=== PATIENT | female | born 1950 | race Caucasian/White ===

== ENCOUNTER 2019-09-25 06:11 | Emergency (ER) | payer MEDICARE, OTHER ==
[2019-09-25] MEDS ORDERED: Alum Hydrox/Mag Hydrox/Simeth 30 ML, Lidocaine 2% 15 ML PO STA ×2 (06:39)
--- NOTE | 2019-09-25 06:43 | EDM.PDOC ---
<Errol Villavicencio Bogdan - Last Filed: 09/25/19 07:25> ED HPI GENERAL MEDICAL PROBLEM - General Chief Complaint: Chest Pain Stated Complaint: CHEST PAIN/BACK PAIN/SOB Time Seen by Provider: 09/25/19 06:21 Source of Information: Reports: Patient History Limitations: Reports: No Limitations - History of Present Illness INITIAL COMMENTS - FREE TEXT/NARRATIVE: Mrs. Kwong is a pleasant 69-year-old woman who now presents the ED stating that she woke up at 04:00 this morning with retrosternal chest pain that radiates straight through her back and up her anterior throat to the back of her tongue. She describes the pain as constant and pressure-like. It is a pain, not a discomfort. It is associated with nausea, diaphoresis, and dyspnea. No sense of impending doom. The patient also reports a headache, although she states that she gets near-daily headaches. She took 1 tablet of lisinopril, 2 full-strength aspirin, and an albuterol MDI prior to coming to the ED. No prior similar symptoms. Here in the ED, the patient's initial BP is found to be mildly elevated 156/80, otherwise, she is hemodynamically stable, afebrile, saturating 96% on room air. The patient reports that she has had about 1 week of sweating episodes, where she will suddenly sweat for no apparent reason, even if she is feeling cold. Otherwise, the patient denies having a recent fever, chills, sore throat, ear pain, nasal or sinus congestion, cough, dyspnea, chest pain, palpitations, nausea, vomiting, constipation, diarrhea, abdominal pain, urinary symptoms, recent weight gain or weight loss, recent bloody bowel movements or black bowel movements, recent joint aches, headaches, or rashes. The patient's PCP is Galilea Calle NP. The patient lives in [place], but states that she spends a lot of time in this area, with family. - Related Data Allergies Allergy/AdvReac Type Severity Reaction Status Date / Time cephalexin [From Keflex] Allergy Difficulty Verified 12/15/18 13:23 Breathing codeine Allergy Hyperactivi Verified 12/15/18 13:24 ty Penicillins Allergy Other Verified 12/15/18 13:22 Home Meds: Home Meds lisinopriL [Lisinopril] 20 mg PO DAILY 09/25/19 [History] Past Medical History HEENT History: Reports: Allergic Rhinitis Cardiovascular History: Reports: Hypertension Respiratory History: Reports: COPD (suspected, not tested) Genitourinary History: Reports: Urinary Incontinence (stress incontinence) - Past Surgical History HEENT Surgical History: Reports: Cataract Surgery (biilateral), Oral Surgery (dental extractions), Tonsillectomy GI Surgical History: Reports: Appendectomy, Cholecystectomy (2006 or 2008) Female Surgical History: Reports: Tubal Ligation Social & Family History - Tobacco Use Smoking Status *Q: Current Every Day Smoker Years of Tobacco use: 61 Packs/Tins Daily: 2 Packs/Tins Daily Comment: Down from 2.5 ppd - Alcohol Use Alcohol Use History: No - Recreational Drug Use Recreational Drug Use: No - Living Situation & Occupation Living situation: Reports: , with Family Occupation: Retired ED ROS GENERAL - Review of Systems Review Of Systems: Comprehensive ROS is negative, except as noted in HPI. ED EXAM, GENERAL - Physical Exam Exam: See Below Exam Limited By: No Limitations General Appearance: Alert, WD/WN, Mild Distress (appears uncomfortable) Eye Exam: Bilateral Eye: EOMI, Normal Inspection Ears: Normal External Exam, Hearing Grossly Normal Nose: Normal Inspection Throat/Mouth: Normal Inspection, Normal Lips, Normal Voice, No Airway Compromise Head: Atraumatic, Normocephalic Neck: Normal Inspection, Full Range of Motion Respiratory/Chest: No Respiratory Distress, Lungs Clear, Normal Breath Sounds, No Accessory Muscle Use, Chest Non-Tender Cardiovascular: Normal Peripheral Pulses, Regular Rate, Rhythm, No Edema, No Gallop, No JVD, No Murmur, No Rub Peripheral Pulses: 3+: Radial (L), Radial (R) GI/Abdominal: Normal Bowel Sounds, Soft, Non-Tender (including the epigastrium), No Organomegaly, No Distention, No Abnormal Bruit, No Mass (Female) Exam: Deferred Rectal (Female) Exam: Deferred Back Exam: Normal Inspection, Full Range of Motion. No: CVA Tenderness (L), CVA Tenderness (R) Extremities: Normal Inspection, Normal Range of Motion, No Pedal Edema, Normal Capillary Refill Neurological: Alert, Oriented, Normal Cognition, No Motor/Sensory Deficits Psychiatric: Normal Affect Skin Exam: Warm, Dry, Intact, Normal Color, No Rash EKG INTERPRETATION EKG Date: 09/25/19 Time: 06:28 Rhythm: NSR Rate (Beats/Min): 84 [place]: RAD-Right [place] Deviation P-Wave: Present QRS: Normal (slightly late transition) ST-T: Normal QT: Normal Comparison: NA - No Prior EKG Course - Re-Assessments/Exams Free Text/Narrative Re-Assessment/Exam: 09/25/19 06:41 As above, the patient has had about 1 week of paroxysmal diaphoresis, then woke around 4:00 this morning with retrosternal chest pain that radiated straight through to her back, up into her anterior neck, and to the back of her tongue. Her symptoms are made worse when she takes a deep breath, otherwise, she has not identified any modifiers. Her pain is associated with shortness of breath, nausea, and diaphoresis. Her ECG obtained at triage shows no ischemic changes. I suspect acid reflux, and have therefore ordered a GI cocktail, along with a work-up that includes blood work and a chest x-ray. 09/25/19 07:16 2-view chest x-ray is read by Dr. Puentes as: 1. Questionable pulmonary nodule within left upper chest. Noncontrast chest CT could be considered to further evaluate. 2. Emphysematous change. 3. Nothing acute is otherwise seen. 09/25/19 07:21 The patient states that the GI cocktail helped her chest pain "a little bit". Case discussed with Dr. Broussard, and care of the patient turned over to him at this time, for change of shift. 09/25/19 07:24 I have ordered a CT of the chest with IV contrast, to rule out an aortic dissection, along with IV fluid. Departure - Departure Disposition: Home, Self-Care 01 Clinical Impression: Atypical chest pain, Pulmonary nodule, left - Discharge Information *PRESCRIPTION DRUG MONITORING PROGRAM REVIEWED*: Not Applicable *COPY OF PRESCRIPTION DRUG MONITORING REPORT IN PATIENT BOBBY: Not Applicable Referrals: Galilea Calle NP [Primary Care Provider] - 1 Week Forms: ED Department Discharge Additional Instructions: Take your medication as prescribed. Follow up with Galilea to have the nodule in your left chest worked up. Please return if you are worse. Sepsis Event Note (ED) - Evaluation Sepsis Screening Result: No Definite Risk <Marcus Broussard - Last Filed: 09/25/19 09:49> Course - Vital Signs Last Recorded V/S: Last Vital Signs Temp 99.0 F 09/25/19 06:21 Pulse 80 09/25/19 06:21 Resp 16 09/25/19 06:21 BP 156/80 H 09/25/19 06:21 Pulse Ox 96 09/25/19 06:21 - Orders/Labs/Meds Orders: Active Orders 24 hr Category Date Time Status EKG Documentation Completion [RC] STAT Care 09/25/19 06:40 Active Sodium Chloride 0.9% [Normal Saline] 1,000 ml Med 09/25/19 07:30 Active IV ASDIRECTED Sodium Chloride 0.9% [Saline Flush] Med 09/25/19 07:34 Active 10 ml FLUSH ONETIME PRN Medication Orders Sodium Chloride (Normal Saline) 1,000 mls @ 150 mls/hr IV ASDIRECTED ROSEY Last Admin: 09/25/19 07:38 Dose: 150 mls/hr Documented by: TJ Sodium Chloride (Saline Flush) 10 ml FLUSH ONETIME PRN PRN Reason: Keep Vein Open Last Admin: 09/25/19 07:56 Dose: 10 ml Documented by: SADAF Labs: Laboratory Tests 09/25/19 09/25/19 09/25/19 Range/Units 06:30 06:30 06:30 WBC 15.71 H (3.98-10.04) K/mm3 RBC 5.16 (3.98-5.22) M/mm3 Hgb 15.6 (11.2-15.7) gm/dl Hct 47.7 H (34.1-44.9) % MCV 92.4 (79.4-94.8) fl MCH 30.2 (25.6-32.2) pg MCHC 32.7 (32.2-35.5) g/dl RDW Std Deviation 44.3 (36.4-46.3) fL Plt Count 229 (182-369) K/mm3 MPV 10.6 (9.4-12.3) fl Neutrophils % (Manual) 81 H (40-60) % Band Neutrophils % 1 (0-10) % Lymphocytes % (Manual) 11 L (20-40) % Atypical Lymphs % 0 % Monocytes % (Manual) 5 (2-10) % Eosinophils % (Manual) 1 (0.7-5.8) % Basophils % (Manual) 1 (0.1-1.2) Toxic Granulation 2+ moderate Platelet Estimate Adequate Plt Morphology Comment Normal RBC Morph Comment Normal D-Dimer, Quantitative 0.50 (0.19-0.50) mg/L Sodium 139 (136-145) mEq/L Potassium 3.6 (3.5-5.1) mEq/L Chloride 103 (98-107) mEq/L Carbon Dioxide 27 (21-32) mEq/L Anion Gap 12.6 (5-15) BUN 9 (7-18) mg/dL Creatinine 1.0 (0.55-1.02) mg/dL Est Cr Clr Drug Dosing 40.81 mL/min Estimated GFR (MDRD) 55 (>60) mL/min BUN/Creatinine Ratio 9.0 L (14-18) Glucose 99 (83-115) mg/dL Calcium 8.7 (8.5-10.1) mg/dL Total Bilirubin 0.3 (0.2-1.0) mg/dL AST 17 (15-37) U/L ALT 16 (14-59) U/L Alkaline Phosphatase 112 (46-116) U/L Troponin I < 0.017 (0.00-0.056) ng/mL NT-Pro-B Natriuret Pep (0-125) pg/mL Total Protein 7.8 (6.4-8.2) g/dl Albumin 4.0 (3.4-5.0) g/dl Globulin 3.8 gm/dL Albumin/Globulin Ratio 1.1 (1-2) 09/25/19 09/25/19 Range/Units 06:30 09:00 WBC (3.98-10.04) K/mm3 RBC (3.98-5.22) M/mm3 Hgb (11.2-15.7) gm/dl Hct (34.1-44.9) % MCV (79.4-94.8) fl MCH (25.6-32.2) pg MCHC (32.2-35.5) g/dl RDW Std Deviation (36.4-46.3) fL Plt Count (182-369) K/mm3 MPV (9.4-12.3) fl Neutrophils % (Manual) (40-60) % Band Neutrophils % (0-10) % Lymphocytes % (Manual) (20-40) % Atypical Lymphs % % Monocytes % (Manual) (2-10) % Eosinophils % (Manual) (0.7-5.8) % Basophils % (Manual) (0.1-1.2) Toxic Granulation Platelet Estimate Plt Morphology Comment RBC Morph Comment D-Dimer, Quantitative (0.19-0.50) mg/L Sodium (136-145) mEq/L Potassium (3.5-5.1) mEq/L Chloride (98-107) mEq/L Carbon Dioxide (21-32) mEq/L Anion Gap (5-15) BUN (7-18) mg/dL Creatinine (0.55-1.02) mg/dL Est Cr Clr Drug Dosing mL/min Estimated GFR (MDRD) (>60) mL/min BUN/Creatinine Ratio (14-18) Glucose (83-115) mg/dL Calcium (8.5-10.1) mg/dL Total Bilirubin (0.2-1.0) mg/dL AST (15-37) U/L ALT (14-59) U/L Alkaline Phosphatase (46-116) U/L Troponin I < 0.017 (0.00-0.056) ng/mL NT-Pro-B Natriuret Pep 267 H (0-125) pg/mL Total Protein (6.4-8.2) g/dl Albumin (3.4-5.0) g/dl Globulin gm/dL Albumin/Globulin Ratio (1-2) Meds: Medications Generic Name Dose Route Start Last Admin Trade Name Freq PRN Reason Stop Dose Admin Sodium Chloride 1,000 mls @ 150 mls/hr 09/25/19 07:30 09/25/19 07:38 Normal Saline IV 150 mls/hr ASDIRECTED ROSEY Administration Sodium Chloride 10 ml 09/25/19 07:34 09/25/19 07:56 Saline Flush FLUSH 10 ml ONETIME PRN Administration Keep Vein Open Discontinued Medications Generic Name Dose Route Start Last Admin Trade Name Freq PRN Reason Stop Dose Admin Al Hydroxide/Mg Hydroxide 30 0 ml 09/25/19 06:39 09/25/19 06:45 ml/ Lidocaine HCl 15 ml PO 09/25/19 06:40 45 ml ONETIME STA Administration Famotidine 20 mg 09/25/19 08:43 09/25/19 08:57 Pepcid IVPUSH 09/25/19 08:44 20 mg ONETIME ONE Administration Iopamidol 100 ml 09/25/19 07:34 09/25/19 07:51 Isovue-300 (61%) IVPUSH 09/25/19 07:35 100 ml ONETIME ONE Administration - Re-Assessments/Exams Free Text/Narrative Re-Assessment/Exam: 09/25/19 09:[address] Villavicencio. Her WBC was elevated at 15.7. Her CMP looks good. Her troponin is negative. 09/25/19 09:09 Her BNP was slightly elevated at 267. Her chest CT shows nodule within the left upper chest with measurements of 1.2cm X 0.9cm. Neoplastic nodule is high within the differential and needs to be excluded. Emphysematous change. No thoracic dissection or aneurysm. 09/25/19 09:24 She still has a little pain. I ordered pepcid 20mg IV and I will do a repeat troponin. 09/25/19 09:47 The repeat troponin is negative. I will discharge her home to follow up with Galilea to work up the pulmonary nodule. Departure - Departure Time of Disposition: 09:50 Condition: Good Sepsis Event Note (ED) - Focused Exam Vital Signs: Vital Signs Temp Pulse Resp BP Pulse Ox 09/25/19 06:21 99.0 F 80 16 156/80 H 96
--- NOTE | 2019-09-25 07:15 | CR ---
Chest: 2 views of the chest were obtained. Comparison: No previous chest x-ray is available. Nodular type density is noted within the left upper chest measuring 1.2 cm. Difficult to exclude pulmonary nodule. Lungs show no acute parenchymal change. Lungs appear somewhat hyperinflated suggesting emphysematous change. Degenerative change is scattered within the spine. Previous cholecystectomy is noted. Impression: 1. Questionable pulmonary nodule within left upper chest. Noncontrast chest CT could be considered to further evaluate. 2. Emphysematous change. 3. Nothing acute is otherwise seen. Diagnostic code #9 This report was dictated in MDT
[2019-09-25] MEDS ORDERED: Sodium Chloride 0.9% 1,000 ML IV SCH (07:30)
[2019-09-25] MEDS ORDERED: Sodium Chloride 0.9% 10 ML Syringe FLUSH PRN (07:34)
[2019-09-25] MEDS ORDERED: Iopamidol 612 MG/ML 100 ML Bottle IVPUSH ONE (07:34)
--- NOTE | 2019-09-25 08:16 | CT ---
CT chest Technique: Multiple axial sections through the chest were obtained. Intravenous contrast was utilized. Comparison: Prior chest x-ray of 09/25/19. Findings: Cyst is partially visualized within the right kidney. Small hiatal hernia is noted. No pericardial thickening is seen. Mild coronary artery calcification is seen. Aorta shows atherosclerotic calcification with no aneurysm or dissection. Mediastinum and hilar region show no adenopathy. No axillary adenopathy is seen. Emphysematous changes are noted within both lungs. Nodule is noted within the left upper lung correlating to the plain film finding. This measures about 1.2 cm x 0.9 cm. This does not appear calcified and neoplastic nodule is not excluded. Lungs otherwise are clear. No pleural effusions are seen. No acute parenchymal change is seen within the lungs. Bone window settings were reviewed which shows scattered degenerative endplate spurring within the spine. No acute osseous finding is appreciated. Impression: 1. Nodule within the left upper chest with measurements as noted above. Neoplastic nodule is high within the differential and needs to be excluded. 2. Emphysematous change. 3. No thoracic aortic dissection or aneurysm. Diagnostic code #9 This report was dictated in MDT
[2019-09-25] MEDS ORDERED: Famotidine 20 MG/2 ML SDV IVPUSH ONE (08:43)
== END 2019-09-25 10:05 | disposition home or self-care (01) ==
LOC: JD.ED 06:11
DX: R91.1 Solitary pulmonary nodule (principal); I10 Essential (primary) hypertension; F17.210 Nicotine dependence, cigarettes, uncomplicated; Z88.6 Allergy status to analgesic agent; Z88.0 Allergy status to penicillin; Z88.1 Allergy status to other antibiotic agents; Z90.89 Acquired absence of other organs; Z90.49 Acquired absence of other specified parts of digestive tract; Z98.51 Tubal ligation status; Z79.899 Other long term (current) drug therapy
CPT/HCPCS: 36415; 71046; 71260; 80053; 83880; 84484; 85007; 85027; 85379; 93005; 96374; 99285; A9270; J3490; J7030; Q9967; 93010; 99284

== ENCOUNTER 2022-01-13 10:02 | Day surgery (SDC) | payer MEDICARE, OTHER ==
[~2022-01-13 10:02] MED LIST: Lactated Ringers 1,000 ML IV SCH; Lidocaine 1%/Sod Bicarbonate in NS 8.4% 1 ML Syringe IDERM PRN; Sodium Chloride 0.9% 10 ML Syringe FLUSH PRN; Sodium Chloride 0.9% 10 ML Syringe FLUSH SCH
[2022-01-13] MEDS ORDERED: Propofol 200 MG/20 ML SDV ONE (10:41)
[2022-01-13] MEDS ORDERED: fentaNYL 100 MCG/2 ML SDV ONE (10:41)
== END 2022-01-13 12:35 | disposition home or self-care (01) ==
LOC: JD.SDS 10:02
PROVIDERS: ATTEND Surgery
DX: K29.50 Unspecified chronic gastritis without bleeding (principal); K31.A0 Gastric intestinal metaplasia, unspecified; K31.7 Polyp of stomach and duodenum; F17.210 Nicotine dependence, cigarettes, uncomplicated; G47.33 Obstructive sleep apnea (adult) (pediatric); J43.9 Emphysema, unspecified; I10 Essential (primary) hypertension; I34.0 Nonrheumatic mitral (valve) insufficiency; Z88.0 Allergy status to penicillin; Z88.1 Allergy status to other antibiotic agents; Z79.899 Other long term (current) drug therapy; Z98.890 Other specified postprocedural states; Z90.49 Acquired absence of other specified parts of digestive tract; Z79.82 Long term (current) use of aspirin
CPT/HCPCS: 43239; J2704; J3010; J7120; 88305; 88342

== ENCOUNTER → 2023-02-16 | Day surgery (SDC) | payer MEDICARE, OTHER ==
[~2023-02-16] MED LIST changes: +Albuterol/Ipratropium 3.0-0.5 MG/3 ML Neb Soln NEB SCH; -Lidocaine 1%/Sod Bicarbonate in NS 8.4% 1 ML Syringe IDERM PRN; +Propofol 200 MG/20 ML SDV ONE; +fentaNYL 100 MCG/2 ML SDV ONE
== END ==
LOC: JD.SDS 07:04
PROVIDERS: ATTEND Surgery
DX: Z53.8 Procedure and treatment not carried out for other reasons (principal)
CPT/HCPCS: 96360; J7120; J2704; J3010; J7620-GY

== ENCOUNTER 2023-02-21 10:02 | Emergency (ER) | payer MEDICARE, OTHER ==
[2023-02-21 10:47] LABS: BASOPHILS PERCENT AUTO 0.3 % (0.0-1.0); EOSINOPHILS ABSOLUTE AUTO 0.1 K/mm3 (0.0-0.4); EOSINOPHILS PERCENT AUTO 1.6 % (0.0-6.0); HEMATOCRIT 46.1 % (37.0-47.0); HEMOGLOBIN 14.7 gm/dl (12.0-16.0); IMMATURE GRAN ABSOLUTE AUTO 0.01 K/mm3 (0.00-0.05); IMMATURE GRAN PERCENT AUTO 0.1 % (0.0-0.4); LYMPHOCYTES ABSOLUTE AUTO 1.5 K/mm3 (1.0-4.8); LYMPHOCYTES PERCENT AUTO 21.4 % (24.0-44.0); MEAN CORPUSCULAR HEMOGLOBIN 30.9 pg (28.0-32.0); MEAN CORPUSCULAR HGB CONC 31.9 g/dl (32.0-36.0); MEAN CORPUSCULAR VOLUME 97.1 fl (83.0-99.0); MEAN PLATELET VOLUME 9.9 fl (9.4-12.3); MONOCYTES ABSOLUTE AUTO 0.6 K/mm3 (0.0-0.8); MONOCYTES PERCENT AUTO 8.2 % (0.0-8.0); NEUTROPHILS ABSOLUTE AUTO 4.8 K/mm3 (1.8-7.7); NEUTROPHILS PERCENT AUTO 68.4 % (41.0-71.0); PLATELET COUNT,PLT 199 K/mm3 (150-400); RED BLOOD CELL COUNT 4.75 M/mm3 (4.10-5.30); WHITE BLOOD CELL COUNT,WBC 6.95 K/mm3 (3.9-11.3)
[2023-02-21 11:09] LABS: A/G RATIO 0.9 (1-2); ALBUMIN 2.9 g/dl (3.4-5.0); ANION GAP 9.2 (5-15); BILIRUBIN TOTAL 0.4 mg/dL (0.2-1.0); BUN/CREATININE RATIO 8.6 (14-18); CALCIUM 8.7 mg/dL (8.5-10.1); CREATININE 0.7 mg/dL (0.55-1.02); EST CRCL DRUG DOSING (CG) 52.51 mL/min; MAGNESIUM 1.8 mg/dL (1.8-2.4); POTASSIUM,K 3.2 mEq/L (3.5-5.1); PROTEIN TOTAL,TP 6.3 g/dl (6.4-8.2)
== END 2023-02-21 15:30 | disposition home or self-care (01) ==
LOC: JD.ED 10:02
DX: R09.02 Hypoxemia (principal); J44.9 Chronic obstructive pulmonary disease, unspecified; Z99.81 Dependence on supplemental oxygen; Z79.82 Long term (current) use of aspirin; Z90.49 Acquired absence of other specified parts of digestive tract; Z88.0 Allergy status to penicillin; Z88.1 Allergy status to other antibiotic agents
CPT/HCPCS: 36415; 71046; 71046-26; 80053; 83735; 84484; 85025; 93005; 93010; 99283; 99285

== ENCOUNTER 2023-04-26 21:51 | Inpatient (IN) | payer MEDICARE, OTHER ==
[2023-04-26 22:31] LABS: BASOPHILS PERCENT AUTO 0.1 % (0.0-1.0); EOSINOPHILS ABSOLUTE AUTO 0.1 K/mm3 (0.0-0.4); EOSINOPHILS PERCENT AUTO 0.3 % (0.0-6.0); HEMATOCRIT 48.2 % (37.0-47.0); IMMATURE GRAN ABSOLUTE AUTO 0.21 K/mm3 (0.00-0.05); IMMATURE GRAN PERCENT AUTO 0.8 % (0.0-0.4); LYMPHOCYTES ABSOLUTE AUTO 1.6 K/mm3 (1.0-4.8); LYMPHOCYTES PERCENT AUTO 5.8 % (24.0-44.0); MEAN CORPUSCULAR HEMOGLOBIN 31.1 pg (28.0-32.0); MEAN CORPUSCULAR HGB CONC 33.2 g/dl (32.0-36.0); MEAN CORPUSCULAR VOLUME 93.6 fl (83.0-99.0); MEAN PLATELET VOLUME 9.4 fl (9.4-12.3); MONOCYTES ABSOLUTE AUTO 1.6 K/mm3 (0.0-0.8); NEUTROPHILS ABSOLUTE AUTO 23.9 K/mm3 (1.8-7.7); PLATELET COUNT,PLT 221 K/mm3 (150-400); RED BLOOD CELL COUNT 5.15 M/mm3 (4.10-5.30); WHITE BLOOD CELL COUNT,WBC 27.49 K/mm3 (3.9-11.3)
[2023-04-26 22:32] LABS: APPEARANCE,URINE CLEAR (Clear); BILIRUBIN,URINE NEGATIVE (Negative); COLOR,URINE YELLOW (Yellow); GLUCOSE,URINE NEGATIVE (Negative); KETONES,URINE NEGATIVE (Negative); LEUKOCYTE ESTERASE,URINE NEGATIVE (Negative); NITRITE,URINE NEGATIVE (Negative); OCCULT BLOOD,URINE NEGATIVE (Negative); PH,URINE 7.5 (5.0-8.0); PROTEIN,URINE NEGATIVE (Negative)
[2023-04-26] MEDS: Sodium Chloride 0.9% 10 ML Syringe FLUSH PRN (22:37)
[2023-04-26 22:38] LABS: ALBUMIN 3.5 g/dl (3.4-5.0); BILIRUBIN TOTAL 0.5 mg/dL (0.2-1.0); BUN/CREATININE RATIO 16.7 (14-18); CALCIUM 8.4 mg/dL (8.5-10.1); CREATININE 0.6 mg/dL (0.55-1.02); EST CRCL DRUG DOSING (CG) 69.61 mL/min
[2023-04-26 22:46] LABS: BACTERIA,URINE FEW /hpf (FEW); MUCUS,URINE FEW /hpf (FEW); RBC,URINE 0-5 /hpf (0-5); SQUAMOUS EPITHELIAL CELLS,UR 0-5 /hpf (0-5); WBC,URINE 0-5 /hpf (0-5)
[2023-04-26 22:51] LABS: BARBITURATE SCREEN,URINE NEGATIVE (CUTOFF=200); BENZODIAZEPINES SCREEN,URINE NEGATIVE (CUTOFF=150); BUPRENORPHINE SCREEN,URINE NEGATIVE (CUTOFF=10); METHADONE SCREEN, URINE NEGATIVE (CUTOFF=200); METHAMPHETAMINES SCREEN, URINE NEGATIVE (CUTOFF=500); OXYCODONE SCREEN,URINE PRESUMPTIVE POSITIVE (CUT0FF=100); THC SCREEN,URINE 20 NG/ML PRESUMPTIVE POSITIVE (CUTOFF=50)
[2023-04-26 22:54] LABS: AMPHETAMINES SCREEN, URINE NEGATIVE (CUTOFF=500)
[2023-04-26] MEDS ORDERED: Sodium Chloride 0.9% 100 ML IV SCH (23:15)
[2023-04-26 23:57] LABS: SLIDE REVIEW ABNORMAL SMEAR
[2023-04-27] MEDS ORDERED: Naloxone 0.4 MG/ML SDV IVPUSH PRN ×2 (00:16→02:42)
[2023-04-27] MEDS: Morphine 2 MG/ML SYRINGE IVPUSH ONE ×2 (00:21→02:49)
[2023-04-27] MEDS: Doxycycline 100 MG in Sodium Chloride 0.9% 100 ML IV ONE (00:30)
[2023-04-27 01:19] LABS: CORONAVIRUS COVID-19 NAA NEGATIVE (NEGATIVE); INFLUENZA A NAA NEGATIVE (NEGATIVE); RESPIRATORY SYNCYTIAL VIR NAA NEGATIVE (NEGATIVE)
[2023-04-27] MEDS: Sodium Chloride 0.9% 1,000 ML IV SCH ×2 (02:47→04:00)
[2023-04-27] MEDS: Morphine 2 MG/ML SYRINGE IVPUSH PRN (02:47)
[2023-04-27] MEDS: Sulfamethoxazole/Trimethoprim 800-160 MG Tab PO SCH (02:54)
[2023-04-27 05:43] LABS: BASOPHILS ABSOLUTE AUTO 0.1 K/mm3 (0.0-0.2); BASOPHILS PERCENT AUTO 0.2 % (0.0-1.0); EOSINOPHILS ABSOLUTE AUTO 0.1 K/mm3 (0.0-0.4); EOSINOPHILS PERCENT AUTO 0.2 % (0.0-6.0); HEMATOCRIT 44.3 % (37.0-47.0); HEMOGLOBIN 14.7 gm/dl (12.0-16.0); IMMATURE GRAN ABSOLUTE AUTO 0.17 K/mm3 (0.00-0.05); IMMATURE GRAN PERCENT AUTO 0.6 % (0.0-0.4); LYMPHOCYTES ABSOLUTE AUTO 1.7 K/mm3 (1.0-4.8); LYMPHOCYTES PERCENT AUTO 6.1 % (24.0-44.0); MEAN CORPUSCULAR HEMOGLOBIN 30.6 pg (28.0-32.0); MEAN CORPUSCULAR HGB CONC 33.2 g/dl (32.0-36.0); MEAN CORPUSCULAR VOLUME 92.3 fl (83.0-99.0); MEAN PLATELET VOLUME 9.1 fl (9.4-12.3); MONOCYTES ABSOLUTE AUTO 1.7 K/mm3 (0.0-0.8); MONOCYTES PERCENT AUTO 5.8 % (0.0-8.0); NEUTROPHILS ABSOLUTE AUTO 24.6 K/mm3 (1.8-7.7); NEUTROPHILS PERCENT AUTO 87.1 % (41.0-71.0); PLATELET COUNT,PLT 179 K/mm3 (150-400); WHITE BLOOD CELL COUNT,WBC 28.22 K/mm3 (3.9-11.3)
[2023-04-27 06:15] LABS: SLIDE REVIEW ABNORMAL SMEAR
[2023-04-27] MEDS: Levofloxacin/Dextrose 5%-Water 750 MG in Premix Bag 1 BAG IV SCH (06:47)
[2023-04-27] MEDS: Iopamidol 755 Mg/ML 100 ML Bottle IVPUSH ONE (07:45)
[2023-04-27] MEDS ORDERED: Docusate Sodium 100 MG Cap PO PRN (07:57)
[2023-04-27] MEDS ORDERED: oxyCODONE 5 MG Tab PO PRN (07:57)
[2023-04-27] MEDS ORDERED: Albuterol 0.083% 2.5 MG/3 ML Neb Soln NEB PRN (07:57)
[2023-04-27] MEDS ORDERED: Ondansetron 4 MG/2 ML SDV IV PRN (07:57)
[2023-04-27] MEDS ORDERED: Acetaminophen 325 MG Tab PO PRN (07:57)
[2023-04-27] MEDS ORDERED: Melatonin 3 MG Tab PO PRN (07:59)
[2023-04-27] MEDS: Fluticasone NASAL Spray 16 GM Bottle NASBOTH SCH (08:40)
[2023-04-27] MEDS: Aspirin 81 MG Tab.EC PO SCH (08:41)
[2023-04-27] MEDS: Enoxaparin 40 MG/0.4 ML Syringe SUBCUT SCH (08:41)
[2023-04-27] MEDS: Lisinopril 20 MG Tab PO SCH (08:41)
[2023-04-27] MEDS: Pantoprazole 40 MG Tab.CR PO SCH (08:41)
[2023-04-27] MEDS: Albuterol/Ipratropium 3.0-0.5 MG/3 ML Neb Soln NEB SCH (08:59)
[2023-04-27 09:24] LABS: BUN/CREATININE RATIO 13.3 (14-18); CALCIUM 8.3 mg/dL (8.5-10.1); CREATININE 0.6 mg/dL (0.55-1.02); EST CRCL DRUG DOSING (CG) 59.35 mL/min
[2023-04-27] MEDS: GLYCOPYRROLATE INH SCH (09:54)
[2023-04-27] MEDS: FORMOTEROL INH SCH (09:54)
[2023-04-27] MEDS: BUDESONIDE INH SCH (09:54)
[2023-04-27 17:02] LABS: ANION GAP 14.6 (5-15); POTASSIUM,K 4.6 mEq/L (3.5-5.1)
[2023-04-27] MEDS: Famotidine 20 MG Tab PO SCH (20:11)
[2023-04-27] MEDS: traZODone 50 MG Tab PO SCH (20:12)
[2023-04-28 05:02] LABS: BASOPHILS PERCENT AUTO 0.1 % (0.0-1.0); EOSINOPHILS ABSOLUTE AUTO 0.1 K/mm3 (0.0-0.4); EOSINOPHILS PERCENT AUTO 0.3 % (0.0-6.0); HEMATOCRIT 40.6 % (37.0-47.0); HEMOGLOBIN 13.7 gm/dl (12.0-16.0); IMMATURE GRAN ABSOLUTE AUTO 0.08 K/mm3 (0.00-0.05); IMMATURE GRAN PERCENT AUTO 0.4 % (0.0-0.4); LYMPHOCYTES ABSOLUTE AUTO 1.3 K/mm3 (1.0-4.8); LYMPHOCYTES PERCENT AUTO 7.3 % (24.0-44.0); MEAN CORPUSCULAR HEMOGLOBIN 30.1 pg (28.0-32.0); MEAN CORPUSCULAR HGB CONC 33.7 g/dl (32.0-36.0); MEAN CORPUSCULAR VOLUME 89.2 fl (83.0-99.0); MEAN PLATELET VOLUME 9.3 fl (9.4-12.3); MONOCYTES ABSOLUTE AUTO 0.9 K/mm3 (0.0-0.8); NEUTROPHILS PERCENT AUTO 86.9 % (41.0-71.0); PLATELET COUNT,PLT 143 K/mm3 (150-400); RED BLOOD CELL COUNT 4.55 M/mm3 (4.10-5.30); WHITE BLOOD CELL COUNT,WBC 18.38 K/mm3 (3.9-11.3)
[2023-04-28 05:26] LABS: ANION GAP 13.5 (5-15); BUN/CREATININE RATIO 21.7 (14-18); C-REACTIVE PROTEIN 11.84 mg/dL (<0.30); CALCIUM 8.5 mg/dL (8.5-10.1); CREATININE 0.6 mg/dL (0.55-1.02); EST CRCL DRUG DOSING (CG) 59.35 mL/min
[2023-04-28 05:30] LABS: POTASSIUM,K 4.5 mEq/L (3.5-5.1)
[2023-04-28] MEDS: Acetaminophen/Butalbital/Caffeine 325-50-40 MG Tab PO ONE (08:59)
== END 2023-04-28 10:58 | disposition home or self-care (01) | DRG 193 ==
LOC: JD.ED 21:51 → JD.MS 04-27 02:19
PROVIDERS: ADMIT Hospitalist; ATTEND Hospitalist
DX: J18.9 Pneumonia, unspecified organism (principal); J44.9 Chronic obstructive pulmonary disease, unspecified; J96.01 Acute respiratory failure with hypoxia; J44.0 Chronic obstructive pulmonary disease with (acute) lower respiratory infection; I10 Essential (primary) hypertension; M19.90 Unspecified osteoarthritis, unspecified site; G89.29 Other chronic pain; M54.2 Cervicalgia; R63.6 Underweight; Z68.20 Body mass index [BMI] 20.0-20.9, adult; J43.9 Emphysema, unspecified; F17.210 Nicotine dependence, cigarettes, uncomplicated; Z88.1 Allergy status to other antibiotic agents; Z88.0 Allergy status to penicillin; Z79.82 Long term (current) use of aspirin; Z86.010 Personal history of colon polyps; Z90.49 Acquired absence of other specified parts of digestive tract; Z98.51 Tubal ligation status; Z90.89 Acquired absence of other organs; Z98.49 Cataract extraction status, unspecified eye; Z85.118 Personal history of other malignant neoplasm of bronchus and lung; Z99.81 Dependence on supplemental oxygen; Z79.899 Other long term (current) drug therapy
CPT/HCPCS: 0241U; 36415; 70496; 70498; 71045; 71260; 80048; 80053; 80306; 80307; 81001; 83735; 85025; 86140; 93005; 94640; 94667; 94668; 94761; 96365; 96375; 97116; 97161; 99285; 93010; A9270-GY; C1758; J1650; J1956; J2270; J3490; J7030; J7620-GY

== ENCOUNTER 2024-05-24 15:39 | Inpatient (IN) | payer MEDICARE, OTHER ==
[2024-05-24 16:34] LABS: BASOPHILS PERCENT AUTO 0.3 % (0.0-1.0); EOSINOPHILS PERCENT AUTO 0.3 % (0.0-6.0); HEMATOCRIT 41.9 % (37.0-47.0); HEMOGLOBIN 13.8 gm/dl (12.0-16.0); IMMATURE GRAN ABSOLUTE AUTO 0.03 K/mm3 (0.00-0.05); IMMATURE GRAN PERCENT AUTO 0.4 % (0.0-0.4); LYMPHOCYTES ABSOLUTE AUTO 1.2 K/mm3 (1.0-4.8); LYMPHOCYTES PERCENT AUTO 15.6 % (24.0-44.0); MEAN CORPUSCULAR HEMOGLOBIN 30.7 pg (28.0-32.0); MEAN CORPUSCULAR HGB CONC 32.9 g/dl (32.0-36.0); MEAN CORPUSCULAR VOLUME 93.3 fl (83.0-99.0); MEAN PLATELET VOLUME 10.5 fl (9.4-12.3); MONOCYTES ABSOLUTE AUTO 0.7 K/mm3 (0.0-0.8); MONOCYTES PERCENT AUTO 8.9 % (0.0-8.0); NEUTROPHILS ABSOLUTE AUTO 5.9 K/mm3 (1.8-7.7); NEUTROPHILS PERCENT AUTO 74.5 % (41.0-71.0); PLATELET COUNT,PLT 125 K/mm3 (150-400); RED BLOOD CELL COUNT 4.49 M/mm3 (4.10-5.30); WHITE BLOOD CELL COUNT,WBC 7.88 K/mm3 (3.9-11.3)
[2024-05-24 16:54] LABS: ALBUMIN 3.2 g/dl (3.4-5.0); ALKALINE PHOSPHATASE 89 U/L (46-116); ANION GAP 9.8 (5-15); ASPARTATE AMNIOTRANSFERASE,AST 16 U/L (15-37); BILIRUBIN TOTAL 0.5 mg/dL (0.2-1.0); BLOOD UREA NITROGEN,BUN 11 mg/dL (7-18); BUN/CREATININE RATIO 12.2 (14-18); CALCIUM 8.7 mg/dL (8.5-10.1); CARBON DIOXIDE,CO2 31 mEq/L (21-32); CHLORIDE,CL 103 mEq/L (98-107); CREATININE 0.9 mg/dL (0.55-1.02); ESTIMATED GFR 66 mL/min (>60); GLUCOSE RANDOM 92 mg/dL (70-99); POTASSIUM,K 3.8 mEq/L (3.5-5.1); PROTEIN TOTAL,TP 6.5 g/dl (6.4-8.2); SODIUM,NA 140 mEq/L (136-145)
[2024-05-24 17:05] LABS: ALANINE AMINOTRANSFERASE,ALT 14 U/L (14-59)
[2024-05-24 17:26] LABS: BILIRUBIN,URINE NEGATIVE (Negative); COLOR,URINE YELLOW (Yellow); GLUCOSE,URINE NEGATIVE (Negative); KETONES,URINE NEGATIVE (Negative); LEUKOCYTE ESTERASE,URINE 1+ (Negative); NITRITE,URINE NEGATIVE (Negative); OCCULT BLOOD,URINE NEGATIVE (Negative); PROTEIN,URINE NEGATIVE (Negative); UROBILINOGEN,URINE 0.2 (0.2-1.0)
[2024-05-24 17:56] LABS: APPEARANCE,URINE SLT CLOUDY (Clear); BACTERIA,URINE FEW /hpf (FEW); RBC,URINE 0-5 /hpf (0-5); WBC,URINE 20-30 /hpf (0-5)
[2024-05-24 17:57] LABS: MUCUS,URINE FEW /hpf (FEW)
[2024-05-24 18:39] LABS: O2 SATURATION ARTERIAL 97.4 % (96.0-97.0)
[2024-05-24 18:40] LABS: BICARBONATE,ARTERIAL 29.9 meq/L (22.0-26.0)
[2024-05-24] MEDS: Levofloxacin/Dextrose 5%-Water 500 MG in Premix Bag 1 BAG IV SCH (19:53)
[2024-05-25] MEDS ORDERED: Ondansetron 4 MG/2 ML SDV IV PRN (05:52)
[2024-05-25] MEDS ORDERED: Acetaminophen 325 MG Tab PO PRN (05:52)
[2024-05-25] MEDS: buPROPion 150 MG Tab.ER PO SCH (08:42)
[2024-05-25] MEDS: Enoxaparin 40 MG/0.4 ML Syringe SUBCUT SCH (08:42)
[2024-05-25] MEDS: Aspirin 81 MG Tab.EC PO SCH (08:43)
[2024-05-25] MEDS ORDERED: Non-Formulary Medication 1 Each (Budesonide/Glycopyr/Formoterol [Breztri Aerosphere Inhale INH SCH (09:00)
[2024-05-25] MEDS: Famotidine 20 MG Tab PO SCH (21:05)
[2024-05-26 05:53] LABS: HEMATOCRIT 41.2 % (37.0-47.0); HEMOGLOBIN 13.7 gm/dl (12.0-16.0); MEAN CORPUSCULAR HEMOGLOBIN 30.6 pg (28.0-32.0); MEAN CORPUSCULAR HGB CONC 33.3 g/dl (32.0-36.0); MEAN CORPUSCULAR VOLUME 92.2 fl (83.0-99.0); MEAN PLATELET VOLUME 10.7 fl (9.4-12.3); PLATELET COUNT,PLT 115 K/mm3 (150-400); RED BLOOD CELL COUNT 4.47 M/mm3 (4.10-5.30); WHITE BLOOD CELL COUNT,WBC 7.12 K/mm3 (3.9-11.3)
[2024-05-26 06:36] LABS: A/G RATIO 0.9 (1-2); ALBUMIN 2.9 g/dl (3.4-5.0); ANION GAP 7.6 (5-15); BILIRUBIN TOTAL 0.4 mg/dL (0.2-1.0); BUN/CREATININE RATIO 16.7 (14-18); CALCIUM 8.3 mg/dL (8.5-10.1); CREATININE 0.9 mg/dL (0.55-1.02); EST CRCL DRUG DOSING (CG) 38.2 mL/min; POTASSIUM,K 3.6 mEq/L (3.5-5.1); PROTEIN TOTAL,TP 6.2 g/dl (6.4-8.2); TSH 1.479 uIU/mL (0.358-3.74)
[2024-05-26] MEDS ORDERED: Potassium Chloride 20 MEQ Tab.ER PO ONE (13:20)
[2024-05-26] MEDS ORDERED: Levofloxacin/Dextrose 5%-Water 500 MG in Premix Bag 1 BAG IV SCH (20:00)
== END 2024-05-26 15:10 | disposition home or self-care (01) | DRG 948 ==
LOC: JD.ED 15:39 → JD.MS 18:30
PROVIDERS: ADMIT Internal Medicine; ATTEND Student in an Organized Health Care Education/Training Program
PROC: 4A033R1 Measurement of Arterial Saturation, Peripheral, Percutaneous Approach (ICD-10-PCS; principal; 2024-05-24)
DX: R41.82 Altered mental status, unspecified (principal); N30.00 Acute cystitis without hematuria; I10 Essential (primary) hypertension; M19.90 Unspecified osteoarthritis, unspecified site; M54.2 Cervicalgia; G89.29 Other chronic pain; F17.210 Nicotine dependence, cigarettes, uncomplicated; F41.9 Anxiety disorder, unspecified; M79.605 Pain in left leg; H54.7 Unspecified visual loss; F32.A Depression, unspecified; R93.89 Abnormal findings on diagnostic imaging of other specified body structures; J43.9 Emphysema, unspecified; R09.02 Hypoxemia; G47.00 Insomnia, unspecified; G31.9 Degenerative disease of nervous system, unspecified; R29.898 Other symptoms and signs involving the musculoskeletal system; T40.2X5A Adverse effect of other opioids, initial encounter; Z88.8 Allergy status to other drugs, medicaments and biological substances; Z88.0 Allergy status to penicillin; Z79.51 Long term (current) use of inhaled steroids; Z79.82 Long term (current) use of aspirin; Z79.899 Other long term (current) drug therapy; Z86.0100 Personal history of colon polyps, unspecified; Z98.49 Cataract extraction status, unspecified eye; Z90.89 Acquired absence of other organs; Z98.890 Other specified postprocedural states; Z90.49 Acquired absence of other specified parts of digestive tract; Z98.51 Tubal ligation status; Z85.118 Personal history of other malignant neoplasm of bronchus and lung; Z99.81 Dependence on supplemental oxygen
CPT/HCPCS: 36415; 36600; 70450; 70450-26; 71045; 71045-26; 73502-26-LT; 73502-LT; 73552-26-LT; 73552-LT; 80053; 81001; 82803; 84443; 85025; 85027; 86140; 87086; 87428-QW; 93005; 93010; 94760; 94761; 97116-GP; 97162-GP; 97530-GP; 99239; 99285; A9270-GY; J1650; J1956

== ENCOUNTER 2024-12-07 14:00 | Emergency (ER) | payer MEDICARE, OTHER ==
[2024-12-07] MEDS ORDERED: Sodium Chloride 0.9% 10 ML Syringe FLUSH PRN (14:08)
[2024-12-07 14:26] LABS: BASOPHILS ABSOLUTE AUTO 0.0 K/mm3 (0.0-0.2); BASOPHILS PERCENT AUTO 0.2 % (0.0-1.0); EOSINOPHILS ABSOLUTE AUTO 0.2 K/mm3 (0.0-0.4); EOSINOPHILS PERCENT AUTO 2.0 % (0.0-6.0); IMMATURE GRAN ABSOLUTE AUTO 0.03 K/mm3 (0.00-0.05); IMMATURE GRAN PERCENT AUTO 0.4 % (0.0-0.4); LYMPHOCYTES ABSOLUTE AUTO 1.9 K/mm3 (1.0-4.8); LYMPHOCYTES PERCENT AUTO 22.6 % (24.0-44.0); MEAN PLATELET VOLUME 10.3 fl (9.4-12.3); MONOCYTES ABSOLUTE AUTO 0.7 K/mm3 (0.0-0.8); MONOCYTES PERCENT AUTO 7.9 % (0.0-8.0); NEUTROPHILS ABSOLUTE AUTO 5.7 K/mm3 (1.8-7.7); NEUTROPHILS PERCENT AUTO 66.9 % (41.0-71.0); NRBC ABSOLUTE 0.00 (0.00-0.02); NRBC PERCENT 0.0 % (0.0-0.2); PLATELET COUNT,PLT 189 K/mm3 (150-400); RED BLOOD CELL COUNT 4.85 M/mm3 (4.10-5.30); WHITE BLOOD CELL COUNT,WBC 8.45 K/mm3 (3.9-11.3)
[2024-12-07 15:03] LABS: A/G RATIO 1.0 (1-2); ALANINE AMINOTRANSFERASE,ALT 9 U/L (14-59); ASPARTATE AMNIOTRANSFERASE,AST 17 U/L (15-37); BILIRUBIN TOTAL 0.5 mg/dL (0.2-1.0); BLOOD UREA NITROGEN,BUN 10 mg/dL (7-18); CARBON DIOXIDE,CO2 36 mEq/L (21-32); CHLORIDE,CL 103 mEq/L (98-107); CREATININE 1.0 mg/dL (0.55-1.02); ESTIMATED GFR 58 mL/min (>60); GLUCOSE RANDOM 114 mg/dL (70-99); POTASSIUM,K 3.5 mEq/L (3.5-5.1); PROTEIN TOTAL,TP 6.5 g/dl (6.4-8.2); SODIUM,NA 143 mEq/L (136-145); TROPONIN I HIGH SENSITIVITY 13 pg/mL (<=51)
[2024-12-07 17:02] LABS: APPEARANCE,URINE CLEAR (Clear); GLUCOSE,URINE NEGATIVE (Negative); OCCULT BLOOD,URINE NEGATIVE (Negative)
[2024-12-07 17:06] LABS: COARSE GRANULAR CASTS,URINE 0-5 /hpf (0-5); SQUAMOUS EPITHELIAL CELLS,UR 0-5 /hpf (0-5)
== END 2024-12-07 21:01 | disposition home or self-care (01) ==
LOC: JD.ED 14:00
DX: R42 Dizziness and giddiness (principal); I10 Essential (primary) hypertension; J44.9 Chronic obstructive pulmonary disease, unspecified; Z90.49 Acquired absence of other specified parts of digestive tract; Z79.899 Other long term (current) drug therapy; Z79.82 Long term (current) use of aspirin; Z88.1 Allergy status to other antibiotic agents; Z88.0 Allergy status to penicillin; Z88.5 Allergy status to narcotic agent
CPT/HCPCS: 36415; 70450; 71045; 72125; 80053; 81001; 83735; 83880; 84484; 85025; 93005; 99285; A9270; C1758